=== PATIENT | female | born 1935 | race Hispanic/Latino ===

== ENCOUNTER 2018-08-10 19:16 | Inpatient (IN) | payer MEDICARE, OTHER ==
[2018-08-10 19:32] VITALS: RESP 18; BMI 17.9
--- NOTE | 2018-08-10 20:09 | ED PDOC ---
Arrival/HPI - General Chief Complaint: Weakness/Neurological Deficit Time Seen by Provider: 08/10/18 19:22 Historian: Patient, Spouse, Family - History of Present Illness Narrative History of Present Illness (Text): 08/10/18 20:03 82 year old female, whose past medical history includes hypertension, presents to the emergency department for evaluation, status post fall and feelings of generalized weakness, for 1 week. Patient states she fell this morning onto the carpeted floor, but sustained no injuries from the incidence. Patient's family informs that it seemed like she became weak, and slowly fell to the ground. Family also informs of a similar incidence one week prior. Patient informs of starting a new medication for depression, Sertaline, about a week ago. Patient denies any fevers, chills, headache, dizziness, chest pain, cough, abdominal pain, nausea, vomiting, diarrhea, urinary/bowel changes, or any other complaint. Time/Duration: 1 week Symptom Onset: Gradual Symptom Course: Unchanged Context: Walking, Home Past Medical History - Provider Review Nursing Documentation Reviewed: Yes - Infectious Disease Hx of Infectious Diseases: None - Reproductive Menopause: Yes - Cardiac Hx Cardiac Disorders: Yes Hx Hypertension: Yes - Pulmonary Hx Respiratory Disorders: No - Neurological Hx Neurological Disorder: Yes Hx Dementia: Yes - HEENT Hx HEENT Disorder: No - Renal Hx Renal Disorder: No - Endocrine/Metabolic Hx Endocrine Disorders: No - Hematological/Oncological Hx Blood Disorders: No - Integumentary Hx Dermatological Disorder: No - Musculoskeletal/Rheumatological Hx Musculoskeletal Disorders: No - Gastrointestinal Hx Gastrointestinal Disorders: No - Genitourinary/Gynecological Hx Genitourinary Disorders: No - Psychiatric Hx Psychophysiologic Disorder: No Hx Substance Use: No Family/Social History - Physician Review Nursing Documentation Reviewed: Yes Family/Social History: No Known Family HX Smoking Status: Never Smoked Hx Alcohol Use: No Hx Substance Use: No Allergies/Home Meds Allergies/Adverse Reactions: Allergies No Known Allergies Allergy (Verified 08/10/18 19:38) Review of Systems - Physician Review All systems were reviewed & negative as marked: Yes - Review of Systems Constitutional: Fatigue. absent: Fevers, Night Sweats Respiratory: absent: Cough Cardiovascular: absent: Chest Pain Gastrointestinal: absent: Abdominal Pain, Diarrhea, Nausea, Vomiting Neurological: absent: Headache, Dizziness Physical Exam - Physical Exam Narrative Physical Exam (Text): 08/10/18 20:13 Gen: VS reviewed, alert, well developed, well nourished, nontoxic, mild distress. ENT: normal pharynx. Eye: EOMI, PERRL. Neck: no JVD, supple, no adenopathy. CV: regular rate, regular rhythm, no rubs, no murmur, no gallops, S1, S2, pulses equal and strong. Pulm: no distress, clear to auscultation, no wheeze, no rhonchi, breath sounds equal, no rales. Abd: soft, nontender, no guarding, no rebound, no rigidity, normal bowel sounds. Ext: no edema. Skin: good color, no rash, no cyanosis. Psych: responds appropriately to questions, normal affect. Neuro: oriented x 3, CN2-12 intact grossly, motor intact, sensation intact. Vital Signs Reviewed: Yes Vital Signs Temp Pulse Resp BP Pulse Ox 08/10/18 19:32 97.6 F 77 18 128/79 96 Temperature: Afebrile Blood Pressure: Normal Pulse: Regular Respiratory Rate: Normal Appearance: Positive for: Well-Appearing, Non-Toxic, Comfortable Pain Distress: None Mental Status: Positive for: Alert and Oriented X 3 Medical Decision Making ED Course and Treatment: 08/10/18 20:11 Impression: 82 year old female presents for evaluation, status post fall, and feelings of generalized weakness. Plan: -- CT Head -- EKG -- Chest X-ray -- Urinalysis -- Reassess and disposition Prior Visits: Notes and results from previous visits were reviewed. Progress Notes: 08/10/18 22:[address] mccormack, covering for dr. de leon. patient to be admitted for acute weakness and ambulatory dysfunction. patient is a fall high fall risk, has minimal help at home. patient will likely need PT and potential candidate for rehab or prison. - RAD Interpretation Narrative RAD Interpretations (Text): 08/10/18 21:17 cxr my readL no focal infiltrate, no ptx, no cardiomegaly PROCEDURE: CT Head Signed on 08/10/18 Adolph Gonzales M.D. Impression: No acute or significant parenchymal abnormality involving the brain. If symptoms persist follow-up study or even MRI examination recommended. [employer] Experimental [employer]ic: ED Physician - EKG Interpretation EKG Interpretation (Text): 08/10/18 20:50 2015: nsr at 73 bpm, nml qrs, nml axis, no acute stw anm Interpreted by ED Physician: Yes - Scribe Statement The provider has reviewed the documentation as recorded by the Orlandoibwu Ayala Provider Scribe Attestation: All medical record entries made by the Scribe were at my direction and personally dictated by me. I have reviewed the chart and agree that the record accurately reflects my personal performance of the history, physical exam, medical decision making, and the department course for this patient. I have also personally directed, reviewed, and agree with the discharge instructions and disposition. Disposition/Present on Arrival - Present on Arrival Any Indicators Present on Arrival: No History of DVT/PE: No History of Uncontrolled Diabetes: No Urinary Catheter: No History of Decub. Ulcer: No History Surgical Site Infection Following: None - Disposition Have Diagnosis and Disposition been Completed?: Yes Diagnosis: Weakness, Ambulatory dysfunction Disposition: HOSPITALIZED Disposition Time: 22:10 Patient Plan: Admission Patient Problems: Current Active Problems Problem Status Onset Weakness Acute Ambulatory dysfunction Acute Condition: STABLE Referrals: Teodoro Marina MD [Primary Care Provider] - Follow up with primary Forms: [employer] ([place])
[2018-08-10 20:47] LABS: BASO # 0.01 K/mm3 (0.0-2.0); BASO % 0.1 % (0.0-3.0); EOS # 0.1 (0.0-0.7); EOS % 0.5 % (1.5-5.0); GRAN % 77.6 % (50.0-68.0); HEMOGLOBIN 15.3 g/dL (12.0-16.0); LYMPH # 1.1 (1.2-3.4); LYMPH % 10.9 % (22.0-35.0); MEAN CELL VOLUME 84.3 fl (80.0-105.0); MEAN CORPUSCULAR HEMOGLOBIN 28.9 pg (25.0-35.0); MEAN CORPUSCULAR HGB CONC 34.3 g/dl (31.0-37.0); MEAN PLATELET VOLUME 9.8 fl (7.0-11.0); MONO # 1.1 (0.1-0.6); MONO % 10.9 % (1.0-6.0); RBC 5.29 10^6/uL (3.5-6.1); RED CELL DISTRIBUTION WIDTH 13.8 % (11.5-14.5); WHITE BLOOD COUNT 10.3 10^3/ul (4.5-11.0)
[2018-08-10 20:52] LABS: INR 1.16; PARTIAL THROMBOPLASTIN TIME 29.7 Seconds (25.1-36.5); PROTHROMBIN TIME 13.3 SECONDS (9.4-12.5)
[2018-08-10 20:54] LABS: ALB/GLOB RATIO 1.3 (1.1-1.8); ALBUMIN 4.2 g/dL (3.0-4.8); ALT/SGPT 31 U/L (7-56); AST/SGOT 26 U/L (14-36); BLOOD UREA NITROGEN 35 mg/dL (7-21); CALCIUM 10.1 mg/dL (8.4-10.5); GFR NON-AFRICAN AMERICAN > 60
[2018-08-10 21:11] LABS: TROPONIN I < 0.01 ng/mL
[2018-08-10 22:26] LABS: HDL CHOLESTEROL 56 mg/dL (29-60)
[2018-08-10 22:33] LABS: URINE BILIRUBIN MODERATE (NEGATIVE); URINE BLOOD TRACE-INTACT (NEGATIVE); URINE GLUCOSE (UA) NEGATIVE (NEGATIVE); URINE LEUKOCYTE ESTERASE LARGE Leu/uL (NEGATIVE); URINE PROTEIN 30 mg/dL (<30 mg/dL)
[2018-08-10 22:36] LABS: LDL CHOLESTEROL 90 mg/dL (0-129)
[2018-08-10 22:38] LABS: URINE APPEARANCE SL CLOUDY (CLEAR); URINE COLOR YELLOW (YELLOW)
[2018-08-10 22:55] LABS: URINE AMORPHOUS SEDIMENT SMALL; URINE EPITHELIAL CELLS MANY /hpf (0-5); URINE WBC 15 - 20 /hpf (0-6)
[2018-08-11 08:42] LABS: BASO # 0.03 K/mm3 (0.0-2.0); BASO % 0.2 % (0.0-3.0); EOS # 0.2 (0.0-0.7); EOS % 1.4 % (1.5-5.0); GRAN # 8.7 (1.4-6.5); GRAN % 72.4 % (50.0-68.0); HEMOGLOBIN 15.2 g/dL (12.0-16.0); LYMPH # 1.8 (1.2-3.4); LYMPH % 15.2 % (22.0-35.0); MEAN CELL VOLUME 84.1 fl (80.0-105.0); MEAN CORPUSCULAR HEMOGLOBIN 28.4 pg (25.0-35.0); MEAN CORPUSCULAR HGB CONC 33.8 g/dl (31.0-37.0); MEAN PLATELET VOLUME 10.4 fl (7.0-11.0); MONO # 1.3 (0.1-0.6); MONO % 10.8 % (1.0-6.0); RBC 5.35 10^6/uL (3.5-6.1); RED CELL DISTRIBUTION WIDTH 13.8 % (11.5-14.5)
[2018-08-11 09:06] LABS: ALB/GLOB RATIO 1.4 (1.1-1.8); ALBUMIN 4.2 g/dL (3.0-4.8); ALT/SGPT 31 U/L (7-56); AST/SGOT 25 U/L (14-36); BLOOD UREA NITROGEN 28 mg/dL (7-21); CALCIUM 9.9 mg/dL (8.4-10.5); GFR NON-AFRICAN AMERICAN > 60
[2018-08-11 09:14] LABS: FREE T4 1.62 ng/dL (0.78-2.19)
--- NOTE | 2018-08-11 09:18 | CARD ---
APPROVED REPORT Date of service: 08/10/2018 EKG Measurement Heart [id number] <Conclusion> Normal sinus rhythm Mild ST elevations 2,3,F, V 6 c/w early repolarization.
--- NOTE | 2018-08-11 09:43 | CT ---
Date of service: 08/10/2018 PROCEDURE: CT HEAD WITHOUT CONTRAST. HISTORY: weakness, hx ?meningioma COMPARISON: None available. TECHNIQUE: Axial computed tomography images were obtained through the head/brain without intravenous contrast. Supplemental Coronal and Sagittal projectections created and reviewed. Radiation dose: Total exam DLP = 1103.32 mGy-cm. This CT exam was performed using one or more of the following dose reduction techniques: Automated exposure control, adjustment of the mA and/or kV according to patient size, and/or use of iterative reconstruction technique. FINDINGS: HEMORRHAGE: No intracranial hemorrhage. BRAIN: No mass effect or edema. Cortical atrophy and chronic microvascular ischemic change. VENTRICLES: Unremarkable. No hydrocephalus. CALVARIUM: Unremarkable. PARANASAL SINUSES: Unremarkable as visualized. No significant inflammatory changes. MASTOID AIR CELLS: Unremarkable as visualized. No inflammatory changes. OTHER FINDINGS: None. IMPRESSION: No acute intracranial abnormalities. No significant findings to account for the clinical presentation. Concordant results (preliminary interpretation) provided by [employer]. Procedure Completed: 20:55 Preliminary Report: Dictated and Authenticated: 21:22. Final Interpretation: 09:41. August 11, 2018.
--- NOTE | 2018-08-11 10:13 | RAD ---
Date of service: 08/10/2018 HISTORY: Pneumonia. COMPARISON: No prior. TECHNIQUE: Chest PA and lateral FINDINGS: LUNGS: Hyperinflation, manifestations of COPD. No active pulmonary disease. PLEURA: No significant pleural effusion identified. No pneumothorax apparent. CARDIOVASCULAR: No radiographic findings to suggest acute or significant cardiovascular disease. OSSEOUS STRUCTURES: No significant abnormalities. VISUALIZED UPPER ABDOMEN: Normal. OTHER FINDINGS: None. IMPRESSION: No active disease.
[2018-08-11] MEDS ORDERED: Potassium Chloride 40 mEq/30 ml LIQ UD PO ONE (13:00)
[2018-08-11] MEDS: cefTRIAXone 1 gm 1 GM/100 ML BAG IVPB SCH (17:49)
[2018-08-11] MEDS ORDERED: Potassium Chloride 20 mEq ER Tab PO ONE (22:46)
--- NOTE | 2018-08-12 01:33 | HP ---
HISTORY OF PRESENT ILLNESS: Patient is an 82-year-old, patient of Dr. Marina, sister is at the bedside who states that she has been a very ambulatory and active person, but for the last few days she has not been eating well, and yesterday she felt extremely weak when she was walking to the bathroom. She was unable to ambulate and felt as if she has no strength in her leg. So they got concerned and brought her to emergency room for further evaluation. PAST MEDICAL HISTORY: She has past medical history of hypertension, history of generalized osteoarthritis and history of depression. ALLERGIES: SHE IS NOT ALLERGIC TO ANY MEDICATIONS. MEDICATIONS: At home, she is on sertraline 25 daily and lisinopril 2.5 mg daily. SOCIAL HISTORY: She lives with her . Denies smoking, drinking. No alcohol use. REVIEW OF SYSTEMS: Significant for generalized weakness, poor oral intake and lately being depressed. PHYSICAL EXAMINATION: GENERAL: She is awake and alert, able to communicate. VITAL SIGNS: She is afebrile, pulse 75, respirations 18, blood pressure 135/70. LUNGS: Bilateral fair airflow. No rhonchi or crackle. HEART: S1 and S2 audible. ABDOMEN: Soft, nontender. No rebound. No guarding. NEUROLOGICAL: She is awake, alert, oriented, communicative. Moves all extremities. LABORATORY EXAM: WBC is 12, hemoglobin 15, hematocrit 45, platelets 316. Chemistry: Sodium 136, potassium 2.4, chloride 95, CO2 of 30, BUN 28, creatinine 0.7. Blood sugar of 71. Urine shows moderate bilirubin, large leukocyte esterase. Cultures are pending. ASSESSMENT: 1. Generalized weakness probably secondary to hypokalemia. 2. Urinary tract infection. 3. Hypertension. 4. Depression. PLAN: We will start patient on Rocephin. We will await for culture and resume her sertraline and supplement her potassium. We will follow up her electrolyte in a.m. Miles Fuentes MD
--- NOTE | 2018-08-12 06:44 | CP.PCM.PN ---
<Sarah Merino - Last Filed: 08/12/18 10:58> Subjective - Date & Time of Evaluation Date of Evaluation: 08/12/18 Time of Evaluation: 07:00 - Subjective Subjective: Medicine Progress Note for Mallory Acuna PGY3 Patient seen and examined at bedside. Overnight patient was agitated and confused. This morning patient was resting in bed, but confused. She is A&O x 1 but denies chest pain, shortness of breath, nausea/vomiting/diarrhea, numbness/tingling, dysuria or hematuria. Objective - Vital Signs/Intake and Output Vital Signs (last 24 hours): Temp Pulse Resp BP Pulse Ox 98.2 F 71 18 133/76 96 08/11/18 22:00 08/11/18 22:00 08/11/18 22:00 08/11/18 22:00 08/11/18 22:00 Intake and Output: 08/11/18 08/12/18 18:59 06:59 Intake Total 480 Balance 480 - Medications Medications: Current Medications Ceftriaxone Sodium (Rocephin 1 Gram Ivpb) 1 gm in 100 mls @ 100 mls/hr IVPB DAILY [facility]; Protocol Last Admin: 08/11/18 17:49 Dose: 100 mls/hr Lisinopril (Zestril) 2.5 mg PO DAILY [facility] Last Admin: 08/11/18 17:48 Dose: 2.5 mg Sertraline HCl (Zoloft) 25 mg PO DAILY [facility] Last Admin: 08/11/18 12:52 Dose: 25 mg - Labs Labs: 08/11/18 07:00 08/11/18 07:00 PT 13.3 SECONDS (9.4-12.5) H 08/10/18 20:22 INR 1.16 08/10/18 20:22 APTT 29.7 Seconds (25.1-36.5) 08/10/18 20:22 - Constitutional Appears: No Acute Distress - Head Exam Head Exam: ATRAUMATIC, NORMAL INSPECTION, NORMOCEPHALIC - Eye Exam Eye Exam: Normal appearance, PERRL Pupil Exam: NORMAL ACCOMODATION - ENT Exam ENT Exam: Mucous Membranes Moist - Neck Exam Neck Exam: Full ROM - Respiratory Exam Respiratory Exam: Clear to Ausculation Bilateral, NORMAL BREATHING PATTERN. absent: Rales, Rhonchi, Wheezes - Cardiovascular Exam Cardiovascular Exam: REGULAR RHYTHM, +S1, +S2. absent: Gallop, Rubs, Murmur - GI/Abdominal Exam GI & Abdominal Exam: Soft, Normal Bowel Sounds. absent: Rigid, Tenderness, M ass, Rebound - Extremities Exam Extremities Exam: Normal Inspection. absent: Calf Tenderness, Pedal Edema - Neurological Exam Neurological Exam: Alert, CN II-XII Intact. absent: Oriented x3 - Skin Skin Exam: Dry, Warm Assessment and Plan - Assessment and Plan (Free Text) Assessment: This is 82yo female with past medical history of OA, HTN and depression who was admitted for 1. AMS - secondary to UTI and underlying dementia 2. Weakness - can be secondary to UTI v. hypokalemia 3. UTI 4. HTN 5. Depression Plan: Patient is on Rocephin. Urine culture pending. BP is normal and will hold Lisinopril for now. Will continue Zoloft for depression and Xanax prn for delirium. Carotid doppler pending. Patient will need physical therapy. I spoke with sister at length who is the cupboard builder of both the patient and her . She reports she wants both of them to move in with her and have some help at home. Case seen, discussed and reviewed with Dr. Wynn. Mallory Merino PGY3 <José Manuel Wynn S - Last Filed: 08/12/18 22:16> Objective - Vital Signs/Intake and Output Vital Signs (last 24 hours): Temp Pulse Resp BP Pulse Ox 98.3 F 75 18 152/85 H 94 L 08/12/18 14:00 08/12/18 14:00 08/12/18 14:00 08/12/18 14:00 08/12/18 14:00 Intake and Output: 08/12/18 08/13/18 18:59 06:59 Intake Total 360 Balance 360 - Medications Medications: Current Medications Alprazolam (Xanax) 0.25 mg PO BID PRN; Protocol PRN Reason: Agitation Stop: 08/19/18 10:55 Last Admin: 08/12/18 16:10 Dose: 0.25 mg Cefpodoxime Proxetil (Vantin) 200 mg PO Q12 [facility] Stop: 08/16/18 15:16 Lisinopril (Zestril) 2.5 mg PO DAILY [facility] Last Admin: 08/11/18 17:48 Dose: 2.5 mg Sertraline HCl (Zoloft) 25 mg PO DAILY [facility] Last Admin: 08/12/18 11:52 Dose: 25 mg - Labs Labs: 08/12/18 06:30 08/12/18 06:30 PT 13.3 SECONDS (9.4-12.5) H 08/10/18 20:22 INR 1.16 08/10/18 20:22 APTT 29.7 Seconds (25.1-36.5) 08/10/18 20:22 Assessment and Plan - Assessment and Plan (Free Text) Plan: Pt seen and examined by me. I have reviewed the note by the medical review coordinator. The case was discussed and reviewed with the resident. I reviewed the medications and labs. Pt is confused. She may have dementia. Will waif for UCx. SHe has been placed on Xanax prn. Will need GEREMIAS. Will get PT to evalate pt. Carotid doppler has been ordered. Family updated on plan of care.
[2018-08-12 07:12] LABS: BASO # 0.02 K/mm3 (0.0-2.0); BASO % 0.2 % (0.0-3.0); EOS # 0.2 (0.0-0.7); EOS % 1.8 % (1.5-5.0); GRAN # 6.77 (1.4-6.5); GRAN % 66.8 % (50.0-68.0); HEMOGLOBIN 14.8 g/dL (12.0-16.0); LYMPH # 2.3 (1.2-3.4); LYMPH % 22.7 % (22.0-35.0); MEAN CELL VOLUME 85.2 fl (80.0-105.0); MEAN CORPUSCULAR HEMOGLOBIN 28.4 pg (25.0-35.0); MEAN CORPUSCULAR HGB CONC 33.3 g/dl (31.0-37.0); MONO # 0.9 (0.1-0.6); MONO % 8.5 % (1.0-6.0); RBC 5.22 10^6/uL (3.5-6.1); WHITE BLOOD COUNT 10.1 10^3/ul (4.5-11.0)
[2018-08-12 07:35] LABS: ALB/GLOB RATIO 1.2 (1.1-1.8); ALBUMIN 3.9 g/dL (3.0-4.8); ALT/SGPT 26 U/L (7-56); AST/SGOT 24 U/L (14-36); BLOOD UREA NITROGEN 28 mg/dL (7-21); GFR NON-AFRICAN AMERICAN > 60
--- NOTE | 2018-08-12 11:27 | CON ---
DATE: 08/12/2018 NEUROLOGY CONSULTATION CHIEF COMPLAINT: Generalized weakness. HISTORY OF PRESENT ILLNESS: This is an 82-year-old woman with past medical history of hypertension, generalized osteoarthritis, depression, who came in to the hospital, who has been very ambulatory and active person, but the last few days, she has not been eating well, poor p.o. intake and has been generally weak. She is unable to ambulate and did have the strength to get up, therefore she came into the hospital for further evaluation. CAT scan of the head showed no acute intracranial abnormality. She was mildly dehydrated and had the low potassium of 2.8 when she came in. Currently, she is moving all extremities, mildly deconditioned. REVIEW OF SYSTEMS: A 14-point review of systems is negative as per the HPI. ALLERGIES: NO KNOWN DRUG ALLERGIES. MEDICATIONS: Reviewed by nurse per reconciliation sheet. FAMILY HISTORY: Noncontributory. LABORATORY DATA: Sodium is 139, potassium 5.3, chloride 103, carbon dioxide 28, BUN of 28, creatinine 0.7, random glucose of 89. PHYSICAL EXAMINATION VITAL SIGNS: Temperature of 98.2, pulse rate 71, blood pressure 133/76, respiratory rate of 18, oxygen saturation 96% by room air. GENERAL: The patient is sitting up in bed, in no acute distress. HEENT: Head is atraumatic and normocephalic. PERRLA. Extraocular muscles are intact. NECK: Supple, no JVD. No adenopathy noted. LUNGS: Clear to auscultation. No adventitious sounds. HEART: S1 and S2. Normal rate and rhythm. No murmurs, rubs or gallops. ABDOMEN: Soft, nontender, nondistended. Bowel sounds present. EXTREMITIES: No clubbing, no cyanosis. Peripheral pulses 2+ felt bilaterally. NEUROLOGIC: The patient is alert and oriented to person, place, month, and year. Flat affect. Recall after 5 minutes is 0/3. Poor attention span and slow thought process. Cranial nerves II through XII intact. Speech is fluent without any errors. Motor exam: Slight increased tone throughout. Moves all extremities equally. No pronator drift seen. Sensory exam: Light touch, pinprick, proprioception, and vibration are intact. DTRs are 2+ throughout, 1 at both knees and ankles. Coordination: [id number] intact. No dysmetria noted. Gait is deferred for now. ASSESSMENT AND PLAN: This is an 82-year-old woman with history of hypertension, osteoarthritis, depression, who came in for generalized weakness and poor p.o. intake and was consulted and called to evaluate. Her CAT scan of the head showed no acute intracranial abnormality. She has generalized weakness which is likely secondary to an underlying deconditioned state, superimposed osteoarthritis with a flat affect from marked depression. We will recommend; 1. Physical and occupational therapy assessment. 2. Rehabilitation. 3. Continue with Lexapro for underlying depression. 4. Encourage IV fluids and increase p.o. intake. 5. Thiamine 100 mg p.o. daily and continue current present medical management. Thank you for this consultation. Jaime Pope MD
[2018-08-12] MEDS: cefTRIAXone 1 gm 1 GM/100 ML BAG IVPB SCH (11:52)
[2018-08-12 23:28] VITALS: O2SAT 96
[2018-08-13] MEDS ORDERED: DiphenhydrAMINE 50 mg/ml Inj IVP STA (02:21)
[2018-08-13] MEDS ORDERED: DiphenhydrAMINE 12.5 mg/5 ml LIQ UD (5 ml) PO STA (02:27)
[2018-08-13 07:05] LABS: BASO # 0.02 K/mm3 (0.0-2.0); BASO % 0.2 % (0.0-3.0); EOS # 0.1 (0.0-0.7); EOS % 1.5 % (1.5-5.0); GRAN # 7.21 (1.4-6.5); HEMOGLOBIN 14.5 g/dL (12.0-16.0); LYMPH # 1.5 (1.2-3.4); LYMPH % 15.6 % (22.0-35.0); MEAN CELL VOLUME 84.8 fl (80.0-105.0); MEAN CORPUSCULAR HEMOGLOBIN 28.2 pg (25.0-35.0); MEAN CORPUSCULAR HGB CONC 33.3 g/dl (31.0-37.0); MEAN PLATELET VOLUME 9.6 fl (7.0-11.0); MONO # 0.6 (0.1-0.6); MONO % 6.7 % (1.0-6.0); RBC 5.14 10^6/uL (3.5-6.1); RED CELL DISTRIBUTION WIDTH 13.9 % (11.5-14.5); WHITE BLOOD COUNT 9.5 10^3/ul (4.5-11.0)
[2018-08-13 07:35] LABS: ALB/GLOB RATIO 1.2 (1.1-1.8); ALBUMIN 3.8 g/dL (3.0-4.8); ALT/SGPT 23 U/L (7-56); AST/SGOT 25 U/L (14-36); BLOOD UREA NITROGEN 20 mg/dL (7-21); CALCIUM 9.7 mg/dL (8.4-10.5); GFR NON-AFRICAN AMERICAN > 60
[2018-08-13 07:55] VITALS: TEMP 97.8
--- NOTE | 2018-08-13 09:05 | CP.PCM.DIS ---
<AngeliqueSarah - Last Filed: 08/13/18 13:08> Provider - Provider Date of Admission: 08/10/18 22:11 Attending physician: José Manuel Wynn MD Primary care physician: Teodoro Marina MD Time Spent in preparation of Discharge (in minutes): 35 Hospital Course - Lab Results Lab Results: Micro Results 08/10/18 21:50 Urine,Clean Catch Urine Culture - Preliminary Gram Negative Gokul Most Recent Lab Values WBC 9.5 10^3/ul (4.5-11.0) 08/13/18 06:30 RBC 5.14 10^6/uL (3.5-6.1) 08/13/18 06:30 Hgb 14.5 g/dL (12.0-16.0) 08/13/18 06:30 Hct 43.6 % (36.0-48.0) 08/13/18 06:30 MCV 84.8 fl (80.0-105.0) 08/13/18 06:30 MCH 28.2 pg (25.0-35.0) 08/13/18 06:30 MCHC 33.3 g/dl (31.0-37.0) 08/13/18 06:30 RDW 13.9 % (11.5-14.5) 08/13/18 06:30 Plt Count 279 10^3/uL (120.0-450.0) 08/13/18 06:30 MPV 9.6 fl (7.0-11.0) 08/13/18 06:30 Gran % 76.0 % (50.0-68.0) H 08/13/18 06:30 Lymph % (Auto) 15.6 % (22.0-35.0) L 08/13/18 06:30 [place] % (Auto) 6.7 % (1.0-6.0) H 08/13/18 06:30 Eos % (Auto) 1.5 % (1.5-5.0) 08/13/18 06:30 Baso % (Auto) 0.2 % (0.0-3.0) 08/13/18 06:30 Gran # 7.21 (1.4-6.5) H 08/13/18 06:30 Lymph # (Auto) 1.5 (1.2-3.4) 08/13/18 06:30 [place] # (Auto) 0.6 (0.1-0.6) 08/13/18 06:30 Eos # (Auto) 0.1 (0.0-0.7) 08/13/18 06:30 Baso # (Auto) 0.02 K/mm3 (0.0-2.0) 08/13/18 06:30 PT 13.3 SECONDS (9.4-12.5) H 08/10/18 20:22 INR 1.16 08/10/18 20:22 APTT 29.7 Seconds (25.1-36.5) 08/10/18 20:22 Sodium 139 mmol/L (132-148) 08/13/18 06:30 Potassium 3.7 mmol/L (3.6-5.0) 08/13/18 06:30 Chloride 103 mmol/L (98-107) 08/13/18 06:30 Carbon Dioxide 27 mmol/L (21-33) 08/13/18 06:30 Anion Gap 13 (10-20) 08/13/18 06:30 BUN 20 mg/dL (7-21) 08/13/18 06:30 Creatinine 0.7 mg/dl (0.7-1.2) 08/13/18 06:30 Est GFR ( Amer) > 60 08/13/18 06:30 Est GFR (Non-Af Amer) > 60 08/13/18 06:30 Random Glucose 91 mg/dL (70-110) 08/13/18 06:30 Hemoglobin A1c 5.6 % (4.2-6.5) 08/11/18 07:00 Calcium 9.7 mg/dL (8.4-10.5) 08/13/18 06:30 Phosphorus 2.3 mg/dL (2.5-4.5) L 08/13/18 06:30 Magnesium 2.1 mg/dL (1.7-2.2) 08/13/18 06:30 Total Bilirubin 0.6 mg/dL (0.2-1.3) 08/13/18 06:30 AST 25 U/L (14-36) 08/13/18 06:30 ALT 23 U/L (7-56) 08/13/18 06:30 Alkaline Phosphatase 63 U/L (38-126) 08/13/18 06:30 Troponin I < 0.01 ng/mL 08/10/18 20:22 Total Protein 7.1 g/dL (5.8-8.3) 08/13/18 06:30 Albumin 3.8 g/dL (3.0-4.8) 08/13/18 06:30 Globulin 3.3 gm/dL 08/13/18 06:30 Albumin/Globulin Ratio 1.2 (1.1-1.8) 08/13/18 06:30 Triglycerides 63 mg/dL (35-160) 08/10/18 22:10 Cholesterol 182 mg/dL (130-200) 08/10/18 22:10 LDL Cholesterol Direct 90 mg/dL (0-129) 08/10/18 22:10 HDL Cholesterol 56 mg/dL (29-60) 08/10/18 22:10 Free T4 1.62 ng/dL (0.78-2.19) 08/11/18 07:00 TSH 3rd Generation 1.51 mIU/mL (0.46-4.68) 08/11/18 07:00 Urine Color Yellow (YELLOW) 08/10/18 21:50 Urine Appearance Sl cloudy (CLEAR) 08/10/18 21:50 Urine pH 6.0 (4.7-8.0) 08/10/18 21:50 Ur Specific [place] 1.020 (1.005-1.035) 08/10/18 21:50 Urine Protein 30 mg/dL (<30 mg/dL) H 08/10/18 21:50 Urine Glucose (UA) Negative mg/dL (NEGATIVE) 08/10/18 21:50 Urine Ketones 40 mg/dL (NEGATIVE) H 08/10/18 21:50 Urine Blood Trace-intact (NEGATIVE) H 08/10/18 21:50 Urine Nitrate Negative (NEGATIVE) 08/10/18 21:50 Urine Bilirubin Moderate (NEGATIVE) H 08/10/18 21:50 Urine Urobilinogen 2.0 E.U./dL (<1 E.U./dL) H 08/10/18 21:50 Ur Leukocyte Esterase Large Patrick/uL (NEGATIVE) H 08/10/18 21:50 Urine RBC 5 - 10 /hpf (0-2) 08/10/18 21:50 Urine WBC 15 - 20 /hpf (0-6) 08/10/18 21:50 Ur Epithelial Cells Many /hpf (0-5) 08/10/18 21:50 Amorphous Sediment Small 08/10/18 21:50 Blood Type Cancelled 08/12/18 12:40 Antibody Screen Cancelled 08/12/18 12:40 Crossmatch See Detail 08/12/18 12:40 BBK History Checked Cancelled 08/12/18 12:40 - Hospital Course Hospital Course: This is 82yo female with past medical history of OA, HTN and depression who was admitted for weakness and confusion. Patient was found to have UTI positive for E.coli and hypokalemia. Patient was evaluated by neurology who believes the we akness could be secondary to poor PO intake and infection. Patient had some delirium while in the hospital. She was placed on Xanax. We will continue Lisinopril, Zoloft and Xanax. Patient was evaluated by PT who recommend GEREMIAS. I spoke with sister, Radha (also pt county court judge) who would like the patient and her to move in with her but would like her sister to go to [facility] for further rehabilitation. Patient will finish course of PO Vantin at [facility]. Sister verbalized and agreed with discharge plan. - Date & Time of H&P Date of H&P: 08/11/18 Time of H&P: 15:00 Discharge Exam - Head Exam Head Exam: ATRAUMATIC, NORMAL INSPECTION, NORMOCEPHALIC - Eye Exam Eye Exam: Normal appearance, PERRL Pupil Exam: NORMAL ACCOMODATION - ENT Exam ENT Exam: Mucous Membranes Moist - Respiratory Exam Respiratory Exam: Clear to PA & Lateral, NORMAL BREATHING PATTERN, UNREMARKABLE. absent: Rhonchi, Wheezes - Cardiovascular Exam Cardiovascular Exam: REGULAR RHYTHM, +S1, +S2. absent: Gallop, Rubs, Systolic Murmur - GI/Abdominal Exam GI & Abdominal Exam: Normal Bowel Sounds, Soft, Unremarkable. absent: Mass, Rebound, Rigid, Tenderness - Extremities Exam Extremities exam: normal inspection - Neurological Exam Neurological exam: Alert, CN II-XII Intact - Psychiatric Exam Psychiatric exam: Normal Affect, Normal Mood - Skin Skin Exam: Dry, Warm Discharge Plan - Discharge Medications Prescriptions: RX: Cefpodoxime [Vantin] 200 mg PO Q12 #10 tab - Follow Up Plan Condition: STABLE Disposition: HOME/ ROUTINE Instructions: Depression, Preventing Falls, Dementia (DC), Generalized Weakness Additional Instructions: Discharged to [facility]. Follow up with primary care provider. Follow up with neurologist. Take medications as directed. Return to Local ER if symptoms worsen. Referrals: Teodoro Marina MD [Primary Care Provider] - Jaime Pope MD [Staff Provider] - <José Manuel Wynn - Last Filed: 08/13/18 15:13> Provider - Provider Date of Admission: 08/10/18 22:11 Attending physician: José Manuel Wynn MD Primary care physician: Teodoro Marina MD Hospital Course - Lab Results Lab Results: Micro Results 08/10/18 21:50 Urine,Clean Catch Urine Culture - Final Escherichia Coli Most Recent Lab Values WBC 9.5 10^3/ul (4.5-11.0) 08/13/18 06:30 RBC 5.14 10^6/uL (3.5-6.1) 08/13/18 06:30 Hgb 14.5 g/dL (12.0-16.0) 08/13/18 06:30 Hct 43.6 % (36.0-48.0) 08/13/18 06:30 MCV 84.8 fl (80.0-105.0) 08/13/18 06:30 MCH 28.2 pg (25.0-35.0) 08/13/18 06:30 MCHC 33.3 g/dl (31.0-37.0) 08/13/18 06:30 RDW 13.9 % (11.5-14.5) 08/13/18 06:30 Plt Count 279 10^3/uL (120.0-450.0) 08/13/18 06:30 MPV 9.6 fl (7.0-11.0) 08/13/18 06:30 Gran % 76.0 % (50.0-68.0) H 08/13/18 06:30 Lymph % (Auto) 15.6 % (22.0-35.0) L 08/13/18 06:30 [place] % (Auto) 6.7 % (1.0-6.0) H 08/13/18 06:30 Eos % (Auto) 1.5 % (1.5-5.0) 08/13/18 06:30 Baso % (Auto) 0.2 % (0.0-3.0) 08/13/18 06:30 Gran # 7.21 (1.4-6.5) H 08/13/18 06:30 Lymph # (Auto) 1.5 (1.2-3.4) 08/13/18 06:30 [place] # (Auto) 0.6 (0.1-0.6) 08/13/18 06:30 Eos # (Auto) 0.1 (0.0-0.7) 08/13/18 06:30 Baso # (Auto) 0.02 K/mm3 (0.0-2.0) 08/13/18 06:30 PT 13.3 SECONDS (9.4-12.5) H 08/10/18 20:22 INR 1.16 08/10/18 20:22 APTT 29.7 Seconds (25.1-36.5) 08/10/18 20:22 Sodium 139 mmol/L (132-148) 08/13/18 06:30 Potassium 3.7 mmol/L (3.6-5.0) 08/13/18 06:30 Chloride 103 mmol/L (98-107) 08/13/18 06:30 Carbon Dioxide 27 mmol/L (21-33) 08/13/18 06:30 Anion Gap 13 (10-20) 08/13/18 06:30 BUN 20 mg/dL (7-21) 08/13/18 06:30 Creatinine 0.7 mg/dl (0.7-1.2) 08/13/18 06:30 Est GFR ( Amer) > 60 08/13/18 06:30 Est GFR (Non-Af Amer) > 60 08/13/18 06:30 Random Glucose 91 mg/dL (70-110) 08/13/18 06:30 Hemoglobin A1c 5.6 % (4.2-6.5) 08/11/18 07:00 Calcium 9.7 mg/dL (8.4-10.5) 08/13/18 06:30 Phosphorus 2.3 mg/dL (2.5-4.5) L 08/13/18 06:30 Magnesium 2.1 mg/dL (1.7-2.2) 08/13/18 06:30 Total Bilirubin 0.6 mg/dL (0.2-1.3) 08/13/18 06:30 AST 25 U/L (14-36) 08/13/18 06:30 ALT 23 U/L (7-56) 08/13/18 06:30 Alkaline Phosphatase 63 U/L (38-126) 08/13/18 06:30 Troponin I < 0.01 ng/mL 08/10/18 20:22 Total Protein 7.1 g/dL (5.8-8.3) 08/13/18 06:30 Albumin 3.8 g/dL (3.0-4.8) 08/13/18 06:30 Globulin 3.3 gm/dL 08/13/18 06:30 Albumin/Globulin Ratio 1.2 (1.1-1.8) 08/13/18 06:30 Triglycerides 63 mg/dL (35-160) 08/10/18 22:10 Cholesterol 182 mg/dL (130-200) 08/10/18 22:10 LDL Cholesterol Direct 90 mg/dL (0-129) 08/10/18 22:10 HDL Cholesterol 56 mg/dL (29-60) 08/10/18 22:10 Free T4 1.62 ng/dL (0.78-2.19) 08/11/18 07:00 TSH 3rd Generation 1.51 mIU/mL (0.46-4.68) 08/11/18 07:00 Urine Color Yellow (YELLOW) 08/10/18 21:50 Urine Appearance Sl cloudy (CLEAR) 08/10/18 21:50 Urine pH 6.0 (4.7-8.0) 08/10/18 21:50 Ur Specific [place] 1.020 (1.005-1.035) 08/10/18 21:50 Urine Protein 30 mg/dL (<30 mg/dL) H 08/10/18 21:50 Urine Glucose (UA) Negative mg/dL (NEGATIVE) 08/10/18 21:50 Urine Ketones 40 mg/dL (NEGATIVE) H 08/10/18 21:50 Urine Blood Trace-intact (NEGATIVE) H 08/10/18 21:50 Urine Nitrate Negative (NEGATIVE) 08/10/18 21:50 Urine Bilirubin Moderate (NEGATIVE) H 08/10/18 21:50 Urine Urobilinogen 2.0 E.U./dL (<1 E.U./dL) H 08/10/18 21:50 Ur Leukocyte Esterase Large Patrick/uL (NEGATIVE) H 08/10/18 21:50 Urine RBC 5 - 10 /hpf (0-2) 08/10/18 21:50 Urine WBC 15 - 20 /hpf (0-6) 08/10/18 21:50 Ur Epithelial Cells Many /hpf (0-5) 08/10/18 21:50 Amorphous Sediment Small 08/10/18 21:50 Blood Type Cancelled 08/12/18 12:40 Antibody Screen Cancelled 08/12/18 12:40 Crossmatch See Detail 08/12/18 12:40 BBK History Checked Cancelled 08/12/18 12:40 - Hospital Course Hospital Course: Pt seen and examined by me. I have reviewed the note by the lpn medical assistant. The case was discussed and reviewed with the resident. I reviewed the medications and labs.Pt has a UTI due to E Coli. She is on Abx. She is on Xanax. Pt is going to [facility] for GEREMIAS. She denies pain.
[2018-08-13] MEDS ORDERED: Cefpodoxime (Vantin) 200 mg Tab PO SCH (10:00)
[2018-08-13 10:16] VITALS: BP 167/84; PULSE 82
== END 2018-08-13 17:15 | DRG 641 ==
LOC: EDBD → ED 19:16 → MERGE 22:11 → ERH 22:11 → 5RNO 08-11 02:29
PROVIDERS: ADMIT Internal Medicine; ATTEND Internal Medicine Nephrology
DX: E87.6 Hypokalemia (principal); N39.0 Urinary tract infection, site not specified; B96.20 Unspecified Escherichia coli [E. coli] as the cause of diseases classified elsewhere; I10 Essential (primary) hypertension; F03.90 Unspecified dementia, unspecified severity, without behavioral disturbance, psychotic disturbance, mood disturbance, and anxiety; R53.1 Weakness; M15.9 Polyosteoarthritis, unspecified; F32.9 Major depressive disorder, single episode, unspecified; R45.1 Restlessness and agitation; R26.9 Unspecified abnormalities of gait and mobility; Z91.81 History of falling

== ENCOUNTER 2018-11-03 16:18 | Observation (INO) | payer MEDICARE, OTHER ==
[2018-11-03 16:19] VITALS: BMI 21.3
--- NOTE | 2018-11-03 16:48 | ED PDOC ---
Arrival/HPI - General Time Seen by Provider: 11/03/18 16:32 - History of Present Illness Narrative History of Present Illness (Text): 11/03/18 16:46 82 yo female hx of htn, dementia, baseline mildly confused, presetns s/p fall. pt states fell while"chaing cats bowl of water" no head injuyr no loc. no other complait. no blood thinner use. Past Medical History - Infectious Disease Hx of Infectious Diseases: None - Cardiac Hx Cardiac Disorders: Yes Hx Hypertension: Yes - Pulmonary Hx Respiratory Disorders: No - Neurological Hx Neurological Disorder: Yes Hx Dementia: Yes - HEENT Hx HEENT Disorder: No - Renal Hx Renal Disorder: No - Endocrine/Metabolic Hx Endocrine Disorders: No - Hematological/Oncological Hx Blood Disorders: No - Integumentary Hx Dermatological Disorder: No - Musculoskeletal/Rheumatological Hx Musculoskeletal Disorders: No Hx Falls: Yes - Gastrointestinal Hx Gastrointestinal Disorders: No - Genitourinary/Gynecological Hx Genitourinary Disorders: No - Psychiatric Hx Psychophysiologic Disorder: No Hx Substance Use: No Family/Social History Family/Social History: Unknown Family HX Smoking Status: Never Smoked Hx Alcohol Use: No Hx Substance Use: No Allergies/Home Meds Allergies/Adverse Reactions: Allergies No Known Allergies Allergy (Verified 11/03/18 16:56) Home Medications: Home Meds Medication Instructions Recorded Confirmed Lisinopril 2.5 mg PO DAILY 08/27/13 11/03/18 Vitamin D 1,000 iu PO DAILY 08/27/13 11/03/18 Lisinopril 2.5 mg PO DAILY 08/11/18 11/03/18 RX: Donepezil [Aricept] 5 mg PO DAILY 11/03/18 11/03/18 RX: Sertraline [Zoloft] 25 mg PO DAILY 11/03/18 11/03/18 Review of Systems - Review of Systems Constitutional: Normal Eyes: Normal ENT: Normal Respiratory: Normal Cardiovascular: Normal Gastrointestinal: Normal Genitourinary Female: Normal Musculoskeletal: Other (hip pain, left) Skin: Normal Neurological: Normal Endocrine: Normal Hemo/Lymphatic: Normal Psychiatric: Normal Physical Exam Vital Signs Temp Pulse Resp BP Pulse Ox 11/03/18 16:22 97.6 F 62 18 100/53 L 98 Temperature: Afebrile Blood Pressure: Normal Pulse: Regular Respiratory Rate: Normal Appearance: Positive for: Well-Appearing, Non-Toxic, Comfortable Pain Distress: None Mental Status: Positive for: Alert and Oriented X 3 Finger Stick Blood Glucose: 127 - Systems Exam Head: Present: Atraumatic, Normocephalic Pupils: Present: PERRL Extroacular Muscles: Present: EOMI Conjunctiva: Present: Normal Mouth: Present: Moist Mucous Membranes Neck: Present: Normal Range of Motion Respiratory/Chest: Present: Clear to Auscultation, Good Air Exchange. No: Respiratory Distress, Accessory Muscle Use Cardiovascular: Present: Regular Rate and Rhythm, Normal S1, S2. No: Murmurs Abdomen: No: Tenderness, Distention, Peritoneal Signs Back: Present: Normal Inspection Upper Extremity: Present: Normal Inspection. No: Cyanosis, Edema Lower Extremity: Present: Normal Inspection, Tenderness, Swelling (left hip). No: Edema Neurological: Present: GCS=15, CN II-XII Intact, Speech Normal, Motor Func Grossly Intact, Normal Cerebellar Funct, Other (oreitned x 2) Skin: Present: Warm, Dry, Normal Color. No: Rashes Psychiatric: Present: Alert, Oriented x 3, Normal Insight, Normal Concentration Medical Decision Making ED Course and Treatment: mechanical fall - labs imaging pending 11/03/18 17:35 ekg sinus yara [address] t wave chagnes 11/03/18 19:14 labs neg. pt lives with elderly , difficulty with gait. needs pt eval for gait dysfunction. - RAD Interpretation Radiology Orders: 11/03/18 16:44 Hip Bilateral [HIP MIN 5V W/ PELVIS JAVID] [RAD] Stat Disposition/Present on Arrival - Present on Arrival Any Indicators Present on Arrival: No History of DVT/PE: No History of Uncontrolled Diabetes: No Urinary Catheter: No History Surgical Site Infection Following: None - Disposition Have Diagnosis and Disposition been Completed?: Yes Diagnosis: Ambulatory dysfunction, Fall Disposition: HOSPITALIZED Disposition Time: 19:00 Condition: STABLE Referrals: Teodoro Marina MD [Primary Care Provider] - Follow up with primary
[2018-11-03 17:30] LABS: BASO # 0.02 K/mm3 (0.0-2.0); BASO % 0.2 % (0.0-3.0); EOS % 0.1 % (1.5-5.0); GRAN # 9.02 (1.4-6.5); GRAN % 82.8 % (50.0-68.0); HEMOGLOBIN 12.8 g/dL (12.0-16.0); LYMPH # 1.2 (1.2-3.4); LYMPH % 10.6 % (22.0-35.0); MEAN CELL VOLUME 91.9 fl (80.0-105.0); MEAN CORPUSCULAR HEMOGLOBIN 29.5 pg (25.0-35.0); MEAN CORPUSCULAR HGB CONC 32.1 g/dl (31.0-37.0); MEAN PLATELET VOLUME 10.4 fl (7.0-11.0); MONO # 0.7 (0.1-0.6); MONO % 6.3 % (1.0-6.0); RBC 4.34 10^6/uL (3.5-6.1); RED CELL DISTRIBUTION WIDTH 14.9 % (11.5-14.5); WHITE BLOOD COUNT 10.9 10^3/uL (4.5-11.0)
[2018-11-03 17:37] LABS: INR 1.03; PARTIAL THROMBOPLASTIN TIME 25.1 Seconds (25.1-36.5); PROTHROMBIN TIME 11.8 SECONDS (9.4-12.5)
[2018-11-03 17:43] LABS: ALB/GLOB RATIO 1.3 (1.1-1.8); ALBUMIN 3.9 g/dL (3.0-4.8); ALT/SGPT 35 U/L (7-56); AST/SGOT 23 U/L (14-36); BLOOD UREA NITROGEN 21 mg/dL (7-21); CALCIUM 10.4 mg/dL (8.4-10.5); GFR NON-AFRICAN AMERICAN > 60
[2018-11-03 17:54] LABS: TROPONIN I < 0.01 ng/mL
[2018-11-04 08:11] VITALS: BP 142/79; PULSE 69; RESP 18; TEMP 97.5; O2SAT 98
--- NOTE | 2018-11-04 09:36 | CARD ---
APPROVED REPORT Date of service: 11/03/2018 EKG Measurement Heart [id number] <Conclusion> Sinus bradycardia Early repolarization No change
--- NOTE | 2018-11-04 09:37 | RAD ---
PROCEDURE: Radiographs of the pelvis and bilateral hips HISTORY: fall COMPARISON: None. FINDINGS: BONES: Pelvis: Unremarkable. Right hip:Unremarkable. Left hip:Unremarkable. JOINTS: Right hip: Unremarkable. Left hip: Unremarkable. Sacroiliac Joints: Unremarkable. Pubic symphysis: Unremarkable. SOFT TISSUES: Normal. OTHER FINDINGS: None. IMPRESSION: Unremarkable radiographs of the hips and pelvis.
--- NOTE | 2018-11-04 09:53 | HP ---
DATE OF EXAM: 11/04/2018 CHIEF COMPLAINT AND HISTORY OF PRESENT ILLNESS: This is a 82-year-old female who is coming to the hospital because of her fall. The patient states that she was trying to change her water and fell and slipped. The patient denies any head trauma. She denies any dizziness. No chest pain. No shortness of breath. No nausea. No vomiting. No fever, headaches or chills. She did not have any weakness in the arms or legs. She says she feels well this morning. She has no other symptoms. She was discharged from [facility] in August and has been getting home physical therapy. The physical therapy finished about a week ago. She has been doing exercise at home and it has helped. All of the review symptoms are within normal limits except as mentioned. ALLERGIES: NO KNOWN DRUG ALLERGIES. HOME MEDICATIONS: She is on sertraline, lisinopril. SOCIAL HISTORY: She lives with her . She denies smoking or drinking alcohol. FAMILY HISTORY: Noncontributory. PAST MEDICAL HISTORY: Hypertension, osteoarthritis and depression. PHYSICAL EXAMINATION: VITAL SIGNS: Temperature is 97.5, pulse is 69, blood pressure 142/79, respirations 18, O2 saturation 98%. Height is 5 feet 8 inches. Weight is 176 pounds. BMI is 26.8. GENERAL: The patient is lying in bed, comfortable, and in no acute distress. HEENT: Atraumatic and normocephalic. Anicteric sclerae. Moist mucosa. Captree conjunctivae. No oral lesions. NECK: No JVD, anterior and posterior adenopathy, thyromegaly, or bruits. CARDIOVASCULAR: S1 and S2 regular. No murmurs, rubs or gallops. LUNGS: Clear to auscultation bilaterally. No wheezes, rales, or rhonchi. ABDOMEN: Bowel sounds are positive. Soft, nontender and nondistended. No hepatosplenomegaly. No rebound and no guarding EXTREMITIES: No cyanosis, clubbing, or edema. NEUROLOGIC: No facial asymmetry. Tongue is midline. No uvula deviation. Power is 5/5 upper extremities and lower extremities. Sensation intact in upper extremities and lower extremities. PSYCHIATRIC: She is awake, alert and oriented x3. No anxiety or depression. She has normal affect. GENITOURINARY: No CVA tenderness. VASCULAR: 2+ pulses in the carotid pulses and pedal pulses. SKIN: No erythema or nodules SPINE: Shows normal curvature. LABORATORY DATA: White count of 10.9 and hemoglobin 12.8. INR is 1.03. Chemistry shows sodium 139, potassium 4.1, creatinine is 0.8 and troponin is 0.01. EKG shows heart rate sinus yara at 58. QTC is 402. No ST changes. The preliminary from the ER is that the bilateral hip x-rays are negative. The patient is able to ambulate and there is no signs of fractures. ASSESSMENT: 1. Fall. 2. Osteoarthritis. 3. Depression. PLAN: The patient is currently comfortable. He is on lisinopril for hypertension. She is on sertraline for depression. The patient is on a heart-healthy diet. She will be discharge home today. I did speak to the patient's sister at the bedside. The patient lives in the same house, but a different floor. She will continue to take care of her needs. CONDITION: Stable. ACTIVITIES: Increase as tolerated. FOLLOWUP: Followup with the primary doctor in 1 to 2 weeks. Discharge home. José Manuel Wynn MD
== END 2018-11-04 13:05 | disposition home or self-care (01) ==
LOC: ED 16:18 → ERH 18:24 → 3RSO 21:08
PROVIDERS: ADMIT Internal Medicine Nephrology; ATTEND Internal Medicine Nephrology
DX: F03.90 Unspecified dementia, unspecified severity, without behavioral disturbance, psychotic disturbance, mood disturbance, and anxiety (principal); F32.89 Other specified depressive episodes; I10 Essential (primary) hypertension; M19.90 Unspecified osteoarthritis, unspecified site; W01.0XXA Fall on same level from slipping, tripping and stumbling without subsequent striking against object, initial encounter; R40.2412 Glasgow coma scale score 13-15, at arrival to emergency department
CPT/HCPCS: 73523; 80053; 82550; 83615; 84484; 85025; 85610; 85730; 93005; 97116; 97162; 99285; G0378; G8978; G8979